=== PATIENT | female | born 1955 | race African-American/Black ===

== ENCOUNTER 2016-10-31 08:46 | Day surgery (SDC) | payer MEDICAID ==
[~2016-10-31] VITALS: Ht 167.6 cm; Wt 88.6 kg
[~2016-10-31 08:46] MED LIST: ALDACTONE25 MG PO; GLUCOPHAGE850 MG PO; HYDROCODONE-APA1 TAB PO; LISINOPRIL10 MG PO; NEURONTIN800 MG PO; OMEPRAZOLE40 MG PO; PAMELOR 25 MG C25 MG PO; ROBAXIN-750750 MG PO; ZOLOFT25 MG
[2016-10-31 10:38] LABS: BASOPHILS 0.3 % (0.0-2.0); EOSINOPHILS 2.3 % (0-7); HEMATOCRIT 36.5 % (36.0-48.0); HEMOGLOBIN 11.6 g/dL (12-16); IMMATURE GRANULOCYTES 0.3 % (0-5); LYMPHOCYTES 40.4 % (15-50); MCH 29.4 pg (26.0-34.0); MCHC 31.8 g/dL (31.0-37.0); MCV 92.6 fL (80.0-100.0); MEAN PLATELET VOLUME 8.6 fL (7.4-10.4); MONOCYTES 8.3 % (2-11); NEUTROPHILS 48.4 % (40-80); PLATELET COUNT 323 10x3/uL (130-400); RBC 3.94 10x6/uL (4.00-5.40); RDW 13.9 % (11.5-14.5); WBC 10.5 10x3/uL (4.8-10.8)
[2016-10-31 10:50] LABS: CALC OSMOLALITY 280 mosm/kg (275-300); CALCIUM 8.9 mg/dL (8.5-10.1); CARBON DIOXIDE 25.3 mmol/L (21.0-32.0); CHLORIDE - SERUM 104 mmol/L (98-107); CREATININE - SERUM 0.7 mg/dL (0.6-1.3); GLUCOSE 146 mg/dL (74-106); SODIUM 140 mmol/L (136-145); UREA NITROGEN 10 mg/dL (7-18); eGFR NON AFRICAN AMERICAN > 90 mL/min (90-120)
[2016-10-31 11:19] VITALS: BP 111/79; Ht 167.6 cm; Wt 88.6 kg
--- NOTE | 2016-10-31 13:31 | NUR ---
6895 DR NORIEGA HAS ROUNDED AND GAVE RESULTS. 2 NORCO 10NG OI GIVEN FOR LEG PAIN/BURNING PAIN.
--- NOTE | 2016-11-01 10:15 | OP ---
PATIENT NAME: CHRIS SORENSON MEDICAL RECORD: [id number] :59 LOCATION:[facility] ADMISSION DATE: SURGEON: SHARATH NORIEGA DO DATE OF OPERATION: 10/31/2016 PROCEDURE: Colonoscopy with endoscopic mucosal resection and snare polypectomy as well as submucosal injection for tattooing. MEDICATIONS: Propofol 650 mg IV per anesthesia. INDICATIONS FOR PROCEDURE: Altered bowel function and hematochezia. FINDINGS: Informed consent was given. The patient was made comfortable with the above medications. After reaching an adequate level of sedation by slow IV push, the patient was placed on her left side. The digital rectal examination was performed and was normal. The endoscope was then advanced under direct visualization through the rectum to the terminal ileum. There was evidence of pandiverticulosis throughout the entire colon. There was mixed, small and large mouth diverticula present throughout and the severity was mild to moderate. There were small internal hemorrhoids, which were not bleeding and showed no bleeding stigmata. There were 4 separate polyps visualized. The first was in the ascending colon just distal to the ileocecal valve. This measured approximately 1 cm in size. It was lifted with saline prior to snare cautery polypectomy in 1 piece. It was completely retrieved. There was some oozing of blood from that site and a small defect secondary to the procedure. Two endoclips were placed to close the defect and prevent any bleeding. This maneuver was successful. Scope was withdrawn and the transverse colon polyp was visualized. It measured approximately 8 mm in size. It was lifted with saline prior to snare cautery polypectomy. It was removed and retrieved in 1 piece. Another polyp was located in the rectum. It measured approximately 5 mm in size. It was removed with hot snare polypectomy and completely retrieved. The fourth and final polyp was a wide-based polyp that measures approximately 1-1/2 to 2 cm in size in the sigmoid colon. This was located in the area full of diverticula, which made the bowel thickened. There were multiple spasms occurring during the procedure which made visualization even difficult of this polyp. For this reason, tattoo was placed in the site and the patient will be brought back in the near future for another attempt at resection of this polyp. Scope was then withdrawn from the patient. The patient tolerated the procedure well and there were no complications. IMPRESSION: 1. Four separate polys, 3 of which were removed by hot snare polypectomy. 2. Small internal hemorrhoids, which were not bleeding. 3. Pandiverticulosis of mild to moderate severity. PLAN AND RECOMMENDATIONS: 1. Discharge home when recovery parameters are met. 2. Continue current medications. 3. Continue current diet and supplement with fiber as tolerated. 4. We will bring the patient back for a flexible sigmoidoscopy with an endocuff for better visualization of the sigmoid polyp and with attempted removal at that time. There was tattoo placed near this polyp to aid with visualization and location on return. TRANSINT:[id number] Voice Confirmation ID: [id number] DOCUMENT ID: [id number] OPERATIVE REPORT [id number] CHRIS SORENSON NATHAN A DO at 1015 CC: [id number] DICTATION DATE: 10/31/16 1310 SUPERVISOR PROPERTIES: 10/31/162014 [facility] 10/31/16 [id number] [place] [address]
== END 2016-10-31 14:53 | disposition home or self-care (01) ==
LOC: D.OPS 08:46
PROVIDERS: Anesthesiology
DX: D12.2 Benign neoplasm of ascending colon (principal); D12.3 Benign neoplasm of transverse colon; K62.1 Rectal polyp

== ENCOUNTER → 2017-01-03 08:43 | Outpatient (CLI) | payer MEDICAID ==
[2016-10-31 11:19] VITALS: BMI 31.5
[2017-01-03 10:50] LABS: ALBUMIN 3.8 g/dL (3.4-5.0); BILIRUBIN - INDIRECT 0.28 mg/dL (0.00-1.00); BILIRUBIN - TOTAL 0.32 mg/dL (0.2-1.3); PROTEIN - SERUM 7.9 g/dL (6.4-8.2)
[2017-01-03 10:53] LABS: BILIRUBIN - DIRECT 0.04 mg/dL (0.00-0.30)
== END | disposition home or self-care (01) ==
LOC: D.US 08:43
PROVIDERS: Internal Medicine Gastroenterology
DX: K76.0 Fatty (change of) liver, not elsewhere classified (principal)

== ENCOUNTER → 2017-01-09 10:00 | Outpatient (CLI) | payer MEDICAID ==
[2016-10-31 11:19] VITALS: BMI 31.5
== END ==
LOC: D.MAMMO 10:00
DX: Z12.31 Encounter for screening mammogram for malignant neoplasm of breast (principal)

== ENCOUNTER 2017-01-30 08:33 | Day surgery (SDC) | payer MEDICAID ==
[~2017-01-30] VITALS: Ht 167.6 cm; Wt 86.4 kg
--- NOTE | ~2017-01-30 | PRO ---
PATIENT:CHRIS SORENSON MEDICAL RECORD: [id number] : 59 LOCATION:D.OPS ADMISSION DATE: 01/30/17 PROCEDURE PERFORMED BY: SHARATH NORIEGA DO PROCEDURE DATE: 01/30/17 PROCEDURE: Flexible sigmoidoscopy with biopsy. INDICATIONS FOR PROCEDURE: Follow-up of previously identified polyp of the sigmoid colon. SCOPE: Olympus video pediatric colonoscope. MEDICATIONS: Propofol 380 milligrams IV per anesthesia. ESTIMATED BLOOD LOSS: Less than 3 mL. COMPLICATIONS: None. FINDINGS: Informed consent was given. The patient was made comfortable with the above medication. After reaching an adequate level of sedation by slow IV push, the patient was placed on her left side. A digital rectal examination was performed and was normal. The endoscope was then advanced under direct visualization through the rectum to the splenic flexure. It was slowly withdrawn, and mucosa was carefully examined. There was severe diverticulosis as noted previously on this examination. In the sigmoid colon at approximately 45 cm where tattoo had previously been placed, the polyp was identified. It was a semi pedunculated wide based polyp that appeared vascular and measured approximately 1.5 cm in size. Multiple attempts were made to remove the polyp using snare cautery, but this was unsuccessful. Reasons for difficulty include the fact that multiple diverticula were in the area and the polyp kept going within a single diverticulum. There were also multiple contractions throughout the bowel and difficulty holding air within the lumen of the bowel for visualization. For this reason, multiple biopsies were taken to submit for pathology. The endoscope was withdrawn from the patient as the polyp could not be removed. The patient tolerated the procedure well, and there were no complications. IMPRESSIONS: 1. Previously identified sigmoid polyp biopsied on this examination but not removed. 2. Severe diverticulosis of the left side of the colon. PLAN/RECOMMENDATIONS: 1. Discharge home when recovery parameters are met. 2. High fiber diet. 3. Continue current medications. 4. Referral to Dr. Demarco for consideration of APC and a complete colonoscopy to reevaluate other areas of previously removed tubulovillous adenoma. 5. Follow-up biopsy specimen results. PROCEDURE NOTE [id number] CHRIS SORENSON SHARATH NORIEGA DO CC: [id number] DICTATION DATE: 01/30/171957 WEB COORDINATOR: TC 01/30/171956 [facility] 01/30/17 [facility] [address] [place] [address]
[~2017-01-30 08:33] MED LIST changes: -ZOLOFT25 MG; +ZOLOFT25 MG PO
[2017-01-30] MEDS ORDERED: K-TAB10 MEQ PO (09:17)
[2017-01-30 09:27] VITALS: Ht 167.6 cm; Wt 86.4 kg
[2017-01-30 10:47] LABS: HEMATOCRIT 38.8 % (36.0-48.0); HEMOGLOBIN 12.5 g/dL (12-16); MCH 29.7 pg (26.0-34.0); MCHC 32.2 g/dL (31.0-37.0); MCV 92.2 fL (80.0-100.0); MEAN PLATELET VOLUME 9.4 fL (7.4-10.4); RBC 4.21 10x6/uL (4.00-5.40); WBC 7.4 10x3/uL (4.8-10.8)
[2017-01-30 11:15] LABS: CALCIUM 9.3 mg/dL (8.5-10.1); CARBON DIOXIDE 23.2 mmol/L (21.0-32.0); POTASSIUM - SERUM 4.2 mmol/L (3.5-5.1)
--- NOTE | 2017-01-30 12:26 | NUR ---
1205- PT BACK, SITTING UP WITH HOB ELEVATED. 1220- FULL LIQUIDS OFFERED. VSS. FSBS CONTINUES TO BE ELEVATED. DR. LE INSTRUCTED PT TO SPEAK WITH PCP ABOUT STARTING ON INSULIN FOR UNCONTROLLED DIABETES. WILL MONITOR.
--- NOTE | 2017-01-30 13:59 | NUR ---
1400- BREVING CONSULTED FOR [facility] COAGULATION. OFFICE FAXED CONSULT AND CALLED FOR VERIFICATION. 1255- FULL LIQUIDS TOLERATED. VSS. IV D/C'D, CATHETER INTACT. 1305- DISCHARGE INSTRUCTIONS COMPLETED, PT VERBALIZED UNDERSTANDING. PAPERWORK SIGNED. [facility] CALLED FOR TRANSPORTATION 1310- PT DISCHARGED VIA WHEELCHAIR TO [facility].
== END 2017-01-30 13:10 | disposition home or self-care (01) ==
LOC: D.OPS 08:33
PROVIDERS: Anesthesiology
DX: D12.5 Benign neoplasm of sigmoid colon (principal); K57.30 Diverticulosis of large intestine without perforation or abscess without bleeding; K56.60 Unspecified intestinal obstruction; Z01.812 Encounter for preprocedural laboratory examination

== ENCOUNTER 2017-04-05 10:48 | Day surgery (SDC) | payer MEDICAID ==
[~2017-04-05] VITALS: Ht 167.6 cm; Wt 88.5 kg
[~2017-04-05 10:48] MED LIST changes: +K-TAB10 MEQ PO; +OMEPRAZOLE20 M1 PO; -OMEPRAZOLE40 MG PO; -ZOLOFT25 MG PO; +ZOLOFT50 MG PO
[2017-04-05] MEDS ORDERED: LEVEMIR100 U/M1 SC (12:17)
[2017-04-05] MEDS ORDERED: GLUCOTROL 5 MG T5 MG PO (12:17)
[2017-04-05] MEDS ORDERED: CLARITIN 10 MG10 MG PO (12:18)
[2017-04-05] MEDS ORDERED: PROAIR HFA8.5 GM INH (12:19)
[2017-04-05] MEDS ORDERED: PRAVACHOL20 MG PO (12:19)
[2017-04-05] MEDS ORDERED: PEPCID20 MG PO (12:19)
[2017-04-05 12:29] VITALS: BP 99/54; Ht 167.6 cm; Wt 88.5 kg
[2017-04-05 13:06] LABS: BASOPHILS 0.3 % (0-2); EOSINOPHILS 1.4 % (0-7); HEMATOCRIT 33.6 % (36.0-48.0); HEMOGLOBIN 10.9 g/dL (12-16); IMMATURE GRANULOCYTES 0.4 % (0-5); MCH 29.8 pg (26.0-34.0); MCHC 32.4 g/dL (31.0-37.0); MCV 91.8 fL (80.0-100.0); MEAN PLATELET VOLUME 8.6 fL (7.4-10.4); MONOCYTES 7.3 % (2-11); NEUTROPHILS 54.6 % (40-80); PLATELET COUNT 327 10x3/uL (130-400); RBC 3.66 10x6/uL (4.00-5.40); WBC 11.1 10x3/uL (4.8-10.8)
[2017-04-05 13:15] LABS: INR 1.02 (0.85-1.17); PROTIME 13.3 SECONDS (11.6-15.0)
[2017-04-05 13:16] LABS: APTT 35.3 SECONDS (22.8-39.4)
[2017-04-05 13:18] LABS: CALC OSMOLALITY 280 mosm/kg (275-300); CALCIUM 8.6 mg/dL (8.5-10.1); CARBON DIOXIDE 25.4 mmol/L (21.0-32.0); CHLORIDE - SERUM 104 mmol/L (98-107); CREATININE - SERUM 0.7 mg/dL (0.6-1.3); GLUCOSE 90 mg/dL (74-106); POTASSIUM - SERUM 4.1 mmol/L (3.5-5.1); SODIUM 141 mmol/L (136-145); UREA NITROGEN 13 mg/dL (7-18); eGFR NON AFRICAN AMERICAN > 90 mL/min (90-120)
--- NOTE | 2017-04-05 16:45 | NUR ---
1624--PT COMPLAINS OF PAIN FROM FIBROMYALGIA, RATES PAIN 05/09. NORCO 10/325MG GIVEN PO PER DR SHERIDAN ORDERS. RICARDA RICHARDS 6625--PT RIDES SCAT VAN, REQUESTS TO HAVE IV OUT AND GET DRESSED TO CATCH HER RIDE BACK HOME. IV DC'D, PT UP TO DRESS AT THIS TIME. RICARDA RICHARDS
--- NOTE | 2017-04-05 16:56 | NUR ---
1655--DISCHARGE INSTRUCTIONS GIVEN, PT VERBALIZES UNDERSTANDING. PT OFF UNIT VIA WC. MCKEON
--- NOTE | 2017-04-07 08:42 | OP ---
PATIENT NAME: CHRIS DOMINIQUE MEDICAL RECORD: [id number] :59 LOCATION:D.OPS ADMISSION DATE: SURGEON: CLARITA BURTON MD DATE OF OPERATION: 04/05/2017 PREOPERATIVE DIAGNOSES: History of complex colon polyps, recurrent colon polyp with a tubulovillous adenoma which has been tattooed. POSTOPERATIVE DIAGNOSIS: History of complex colon polyps, recurrent colon polyp with a tubulovillous adenoma, which has been tattooed, total of 7 polyps including the tattooed polyp. PROCEDURES: 1. Total colonoscopy to cecum. 2. Hot biopsy forceps polypectomy times 6. 3. Polypectomy of the tattooed polyp with ablation of the base of the polyp with the argon plasma supervisor lamp shades. SURGEON: Clarita Burton MD NEW ACCOUNT INTERVIEWER: None. ESTIMATED BLOOD LOSS: Minimal. ANESTHESIA: General. COMPLICATIONS: None. The risks, possible complications and alternatives to procedure were explained to the patient. She elects to proceed. The discussion specifically included, but was not limited to, bleeding requiring emergency reoperation, infection, intestinal injury and intestinal perforation. OPERATIVE COURSE: The patient was conveyed to the operating room electively on 04/05/2017. General anesthesia was induced by anesthesia staff. The patient was positioned in the Quintana position. A digital rectal examination was performed. A colonoscope was inserted through the anus. It was easily advanced to the cecum. Upon withdrawal, I irrigated and aspirated extensively. The prep was adequate. I dragged the folds. A total of 6 sessile polyps were removed utilizing a hot biopsy forceps polypectomy technique. I think that I was able to visualize more polyps just because the prep was better than the prep had been with Dr. Miner. This polyps ranged in size from 6 mm to 1.2 cm. They were removed in their entireties. The tattoo, I found it to be around 25 cm. Across the tattoo was a polyp and it was between 2 folds. It was difficult to get to and grasp and biopsy, but I was able to get some 1 hot and 1 cold endoscopic biopsy of the polyp and then I ablated the rest of the polyp with the argon plasma supervisor lamp shades utilizing the right colon setting in the forced mode. A retroflexed view was obtained in the rectum. The entire pullback was greater than a 20-minute pullback. I then unretroflexed the scope and removed it under direct vision. The patient was then extubated and conveyed to post-anesthesia care unit where she was in stable condition. 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 For this reason, I am going to place her on Flagyl. I will see her OPERATIVE REPORT [id number] CATINACHRIS in the office in 2-3 weeks. I will plan for her next colonoscopy with the argon plasma supervisor lamp shades to take place in 1 year. TRANSINT:[id number] Voice Confirmation ID: [id number] DOCUMENT ID: [id number] CLARITA BURTON MD at 0842 CC: SHARATH MINER DO [id number] DICTATION DATE: 04/05/17 1540 ELEVATOR REPAIRER: 04/06/17 0003 [facility] 04/05/17 [facility] [address] [place] [address]
== END 2017-04-05 16:55 | disposition home or self-care (01) ==
LOC: D.OPS 10:48 → D.PAN 11:15 → D.OPS 12:45 → D.PAN 12:45 → D.OPS 16:55
PROVIDERS: Anesthesiology
DX: K63.5 Polyp of colon (principal); F17.200 Nicotine dependence, unspecified, uncomplicated; E11.9 Type 2 diabetes mellitus without complications; G47.30 Sleep apnea, unspecified; K21.9 Gastro-esophageal reflux disease without esophagitis; Z01.812 Encounter for preprocedural laboratory examination

== ENCOUNTER → 2018-05-08 16:55 | Outpatient (CLI) | payer MEDICAID ==
[2017-04-05 12:29] VITALS: BMI 31.5
[~2018-05-08 16:55] MED LIST changes: +CLARITIN 10 MG10 MG PO; +GLUCOTROL 5 MG T5 MG PO; +LEVEMIR100 U/M1 SC; +PEPCID20 MG PO; +PRAVACHOL20 MG PO; +PROAIR HFA8.5 GM INH
== END | disposition home or self-care (01) ==
LOC: D.MAMMO 14:45
DX: Z12.31 Encounter for screening mammogram for malignant neoplasm of breast (principal)

== ENCOUNTER → 2018-07-03 06:17 | Day surgery (SDC) | payer MEDICAID ==
[~2018-07-03] VITALS: Ht 167.6 cm; Wt 90.9 kg
--- NOTE | ~2018-07-03 | OP ---
PATIENT NAME: CHRIS DOMINIQUE MEDICAL RECORD: [id number] :59 LOCATION:D.OPS ADMISSION DATE: SURGEON: CLARITA BURTON MD DATE OF OPERATION: 07/03/2018 PRINCIPAL DIAGNOSIS: History of recurrent tattooed colon polyp at 25 cm. POSTOPERATIVE DIAGNOSES: 1. History of recurrent tattooed colon polyp at 25 cm with no evidence of recurrence or persistence of polyp. 2. Inadequate prep. 3. Moderate pandiverticulosis. PROCEDURES: Total colonoscopy to cecum. SURGEON: Clarita Burton MD MEDICAL BILLING SERVICE: None. BLOOD LOSS: Zero. ANESTHESIA: IV sedation. COMPLICATIONS: None. The reason for the anesthesia staff being present during the procedure includes sleep apnea and the possible need for airway manipulation. ENDOSCOPIC COURSE: The patient was conveyed to endoscopy suite electively on 07/03/2018. IV sedation was induced by the anesthesia staff. The patient was placed in the Quintana position. A digital rectal examination was performed. A colonoscope was inserted through the anus. It was easily advanced to the cecum. Following withdrawal, I irrigated and aspirated extensively. The tattoos were noted. Specifically, the area between the tattoos was without any polypoid tissue. I checked with normal imaging as well as narrow band imaging. I checked probably about 10 times in the area and could identify no polypoid tissue. The pullback was greater than a 14-minute pullback. A retroflexed view was obtained in the rectum. I then unretroflexed the scope and removed it under direct vision. I will plan to return the patient back over to Dr. Miner for surveillance colonoscopies in the future. As this was an inadequate prep, I would recommend the patient's next surveillance colonoscopy to take place in 1 year. TRANSINT:[id number] Voice Confirmation ID: [id number] DOCUMENT ID: [id number] CLARITA BURTON MD at 1909 CC: [facility] MAC and SHARATH MINER DO [id number] DICTATION DATE: 07/03/18 0936 GROUND CREW CHIEF: 07/03/[address] [facility] [address] [place] [address]
--- NOTE | ~2018-07-03 | HP ---
PATIENT: CHRIS DOMINIQUE MEDICAL RECORD: [id number] ACCOUNT: [id number] LOCATION:[facility] : 59 ADMISSION DATE: 07/03/18 PCP: [facility] HISTORY AND PHYSICAL EXAMINATION CHIEF COMPLAINT: Polyp. HISTORY OF PRESENT ILLNESS: The patient has a history of a tattooed polyp at 25 cm. It was between 2 folds. The pathology was a tubulovillous adenoma with low-grade atypia. The patient is to undergo a colonoscopy with argon plasma residential specialist. PAST MEDICAL AND SURGICAL HISTORY: Hysterectomy, left shoulder surgery, left hand surgery, history of colonoscopy for polyps, sleep apnea on CPAP, asthma, hypertension, non-insulin dependent diabetes mellitus, neuropathy as well as fibromyalgia. HOME MEDICATIONS: Please see the nursing list. ALLERGIES: No known drug allergies. PHYSICAL EXAMINATION: GENERAL: The patient does not appear acutely ill. She does not appear chronically ill. VITAL SIGNS: Reviewed. EARS: External ears appear normal. EYES: Extraocular movements are intact. NECK: Trachea is midline. CHEST: No intercostal retractions. PULMONARY: Nonlabored, no stridor. IMPRESSION: History of tubulovillous adenoma at 25 cm. PLAN: Colonoscopy and polypectomy. TRANSINT:[id number] Voice Confirmation ID: [id number] DOCUMENT ID: [id number] CLARITA BURTON MD at 1909 CC: [id number] DICTATION DATE: 07/03/18 0848 REHABILITATION COUNSELLOR: 07/03/18 0908 [facility] [address] [place] [address]
[2018-07-03 07:00] LABS: HEMATOCRIT 34.9 % (36.0-48.0); MCH 27.8 pg (26.0-34.0); MCHC 31.5 g/dL (31.0-37.0); MCV 88.4 fL (80.0-100.0); MEAN PLATELET VOLUME 8.7 fL (7.4-10.4); RBC 3.95 10x6/uL (4.00-5.40); RDW 16.1 % (11.5-14.5); WBC 9.3 10x3/uL (4.8-10.8)
[2018-07-03 07:42] VITALS: BP 126/69; Ht 167.6 cm; Wt 90.9 kg
== END | disposition home or self-care (01) ==
LOC: D.OPS 06:17
PROVIDERS: Anesthesiology
DX: K57.30 Diverticulosis of large intestine without perforation or abscess without bleeding (principal); Z86.010 Personal history of colon polyps; G47.30 Sleep apnea, unspecified; J45.909 Unspecified asthma, uncomplicated; I10 Essential (primary) hypertension; E11.9 Type 2 diabetes mellitus without complications; G62.9 Polyneuropathy, unspecified; M79.7 Fibromyalgia; Z01.812 Encounter for preprocedural laboratory examination

== ENCOUNTER → 2018-07-10 16:42 | Outpatient (CLI) | payer MEDICAID ==
[2018-07-03 07:42] VITALS: BMI 32.3
== END | disposition home or self-care (01) ==
LOC: D.MAMMO 06-07 09:30
DX: R92.8 Other abnormal and inconclusive findings on diagnostic imaging of breast (principal)

== ENCOUNTER 2018-09-19 05:15 | Day surgery (SDC) | payer MEDICAID ==
[~2018-09-19] VITALS: Ht 167.6 cm; Wt 90.9 kg
[~2018-09-19 05:15] MED LIST changes: +LEVEMIR FL100 UNIT/1 SC; -LEVEMIR100 U/M1 SC
[2018-09-19 05:45] LABS: BASOPHILS 0.3 % (0-2); EOSINOPHILS 2.1 % (0-7); HEMATOCRIT 35.9 % (36.0-48.0); HEMOGLOBIN 11.4 g/dL (12-16); IMMATURE GRANULOCYTES 0.1 % (0-5); LYMPHOCYTES 48.8 % (15-50); MCHC 31.8 g/dL (31.0-37.0); MCV 91.3 fL (80.0-100.0); MEAN PLATELET VOLUME 8.4 fL (7.4-10.4); MONOCYTES 8.2 % (2-11); NEUTROPHILS 40.5 % (40-80); PLATELET COUNT 296 10x3/uL (130-400); RBC 3.93 10x6/uL (4.00-5.40); RDW 15.3 % (11.5-14.5); WBC 11.8 10x3/uL (4.8-10.8)
[2018-09-19 05:57] LABS: ANION GAP 13.4 mmol/L (8-16); CALCIUM 8.9 mg/dL (8.5-10.1); CARBON DIOXIDE 27.5 mmol/L (21.0-32.0); POTASSIUM - SERUM 3.9 mmol/L (3.5-5.1)
[2018-09-19 07:29] VITALS: BP 107/67; Ht 167.6 cm; Wt 90.9 kg
--- NOTE | 2018-09-19 08:09 | NUR ---
0750-TO ROOM, TIVA PER DR. GOODMAN'S. 0757-PROCEDURE STARTED-IMMEDIATE DESATURATE TO 40'S WITH ORAL AIRWAY PLACED PER ANESTHESIA-BAG WITH AMBU BAG UP TO 90'S, AIRWAY SUCTION MULTIPLE TIMES. 0802 TO 0804 REATTEMPT WITH SEDATE PER TIVA, PATIENT QUICKLY DESAT-PROCEDURE DISCONTINUED. MASK PLACED @ 15 LITERS, SUCTION ORAL AIRWAY. 0811-PT. AWAKE-TALKATIVE, O2 VIA NC 10 LITERS-SUCTION ORAL AIRWAY WITH PRODUCTIVE COUGH, LARGE AMOUNT CLEAR SECREATIONS NOTED. HEART RATE 98, PULSE OX 100%, 138/69 RESP. RATE 22.
--- NOTE | 2018-09-19 08:41 | NUR ---
0802-SEE POST PROCEDURE NURSE'S NOTE.
--- NOTE | 2018-09-19 09:41 | OP ---
PATIENT NAME: CHRIS DOMINIQUE MEDICAL RECORD: [id number] :59 LOCATION:D.OPS ADMISSION DATE: SURGEON: SHARATH NORIEGA DO DATE OF OPERATION: 09/19/2018 PROCEDURE: Attempted EGD. INDICATION FOR PROCEDURE: Dysphagia, Chavez's esophagus, GERD. SCOPE: Olympus video gastroscope. MEDICATIONS: Propofol 150 mg IV per anesthesia. ESTIMATED BLOOD LOSS: None. COMPLICATIONS/LIMITATIONS: This procedure was not completed due to patient's intolerance with hypoxia after initiating sedation. DESCRIPTION OF PROCEDURE: The patient was placed on her left side. She had a nasal cannula and sedation was started slowly. Once reaching an adequate level of sedation, the EGD was attempted. The endoscope intubated the esophagus and within a few seconds it was noted that the patient's oxygen saturation level was dropping quickly. The endoscope was withdrawn from the patient. The patient was supported with bag mask ventilation and jaw thrust maneuvers. The oxygen saturation responded appropriately and quickly to these maneuvers successfully. After she was recovered, adequate amount of time, sedation was restarted and the procedure was going to be attempted again, but the patient again desaturated quickly without intubation of the esophagus. At this time, all sedation was stopped. A mask was placed on the patient as well as an oral airway and her oxygen saturation recovered quickly. Procedure was completely terminated at this time. IMPRESSIONS: Incomplete EGD without findings on today's examination. PLAN AND RECOMMENDATIONS: 1. We will discharge home when recovery parameters are met. 2. We will obtain an EKG prior to discharge. 3. We will reschedule for another date in the OR with general anesthesia for safety reasons. I have discussed this with the patient and she is in agreement with plan. TRANSINT:[id number] Voice Confirmation ID: [id number] DOCUMENT ID: [id number] SHARATH NORIEGA DO at 0941 CC: [id number] DICTATION DATE: 09/19/1834 WOODYARD CRANE OPERATOR: 09/19/18 0857 [facility] [id number]
== END 2018-09-19 10:20 | disposition home or self-care (01) ==
LOC: D.OPS 05:15
PROVIDERS: Anesthesiology
DX: T88.59XA Other complications of anesthesia, initial encounter (principal); R09.02 Hypoxemia; R13.10 Dysphagia, unspecified; K22.70 Barrett's esophagus without dysplasia; K21.9 Gastro-esophageal reflux disease without esophagitis

== ENCOUNTER → 2019-01-24 08:30 | Outpatient (CLI) | payer MEDICAID ==
[2018-09-19 07:29] VITALS: BMI 32.3
== END | disposition home or self-care (01) ==
LOC: D.MAMMO 12-10 10:30
PROVIDERS: ATTEND Family Medicine
DX: R92.8 Other abnormal and inconclusive findings on diagnostic imaging of breast (principal)

== ENCOUNTER → 2019-06-06 08:22 | Outpatient (CLI) | payer MEDICAID ==
[2018-09-19 07:29] VITALS: BMI 32.3
[2019-06-06 09:05] LABS: ALBUMIN 3.9 g/dL (3.4-5.0); BILIRUBIN - DIRECT 0.11 mg/dL (0.00-0.30); BILIRUBIN - INDIRECT 0.16 mg/dL (0.00-1.00); BILIRUBIN - TOTAL 0.27 mg/dL (0.2-1.3); PROTEIN - SERUM 7.9 g/dL (6.4-8.2)
== END | disposition home or self-care (01) ==
LOC: D.US 08:22
PROVIDERS: ATTEND Internal Medicine Gastroenterology
DX: K76.0 Fatty (change of) liver, not elsewhere classified (principal)

== ENCOUNTER 2019-08-14 06:34 | Inpatient (IN) | payer MEDICAID ==
[2019-08-14] VITALS (9 sets, daily range): BP systolic 119–153; BP diastolic 64–95; Ht 167.6 cm; Wt 97.5 kg
[~2019-08-14] VITALS: Ht 167.6 cm; Wt 97.5 kg
--- NOTE | ~2019-08-14 | OP ---
PATIENT NAME: CHRIS SORENSON MEDICAL RECORD: [id number] :59 LOCATION:D.OPS ADMISSION DATE: SURGEON: CLARITA BURTON MD DATE OF OPERATION: 08/14/2019 PREOPERATIVE DIAGNOSES: 1. Symptomatic gallstones. 2. Fatty liver disease. POSTOPERATIVE DIAGNOSES: 1. Symptomatic gallstones. 2. Fatty liver disease. 3. Extensive intraabdominal adhesions around and inferior to the umbilicus. PROCEDURES: 1. Laparoscopic cholecystectomy. 2. Intraoperative cholangiography without immediate surgeon interpretation. 3. A 14-gauge core needle liver biopsy. SURGEON: Clarita Burton MD LOAN OFFICER: None. BLOOD LOSS: Minimal. ANESTHESIA: General. COMPLICATIONS: None. The indication for liver biopsy was fatty liver disease, which was noted on ultrasound. The adhesiolysis was a sharp adhesiolysis and took approximately 13 minutes. OPERATIVE COURSE: The patient was conveyed the operating room electively on 08/14/2019. General anesthesia was induced by the anesthesia staff. The abdomen was sterilely prepped and draped. A small skin kathy was accomplished in the left upper quadrant. A Veress needle was inserted through the skin kathy into the peritoneal cavity. CO2 insufflation was begun. Once a sufficient pneumoperitoneum had been achieved, a 5-mm trocar was inserted in the right upper quadrant. Under direct internal vision utilizing the television camera, a 5-mm trocar was inserted in the left mid abdomen. Through these 2 trocars, a sharp adhesiolysis was performed with scissors as well as with the electrocautery. This was done in the midline as well as in the suprapubic area and around the umbilicus. This was due to the patient's prior operation. At no time was there any apparent nerve or muscle or intestinal injury during this operation. A skin incision was accomplished within the umbilicus. A 12-mm trocar was inserted here. Another 5-mm trocar was inserted far laterally in the right upper quadrant. Some adhesions over the liver were taken down with the hook cautery. I advanced a 14-gauge core biopsy device under laparoscopic guidance. Cores over the convexity of the liver were taken. The biopsy sites were made hemostatic with electrocautery. OPERATIVE REPORT [id number] CHRIS SORENSON I grasped the gallbladder. There was scar tissue to the gallbladder as well. I advanced a cholangiogram trocar and punctured the fundus of the gallbladder. I aspirated bile. I then injected dye. Real-time cholangiographic images were obtained and are sent to the radiologist for interpretation. I aspirated bile and removed the cholangiogram trocar. The gallbladder was grasped and retracted cephalad. Adhesions to the gallbladder were taken down bluntly. Blunt dissection was begun on the triangle of Calot. One cystic artery and one cystic duct were identified. These were clipped multiply and divided between clips. The gallbladder was then excised from its bed in the liver. It was placed within a bag retrieval device and was withdrawn through the umbilical fascia defect. The 12-mm trocar was replaced and the abdomen reinsufflated. I irrigated and aspirated the right upper quadrant. There was no bleeding even at low pressure of 8. The Omar-Lee suture closure device and 0 Vicryl sutures were used to close the umbilical fascia. The abdomen was desufflated. The 5-mm trocar sites were closed with interrupted intracuticular 3-0 Vicryls. The skin at the umbilicus was closed with interrupted 4-0 Vicryl Rapide sutures. Benzoin and Steri-Strips were applied. The patient was then extubated and conveyed to post-anesthesia care unit where she was in stable condition. She will be dismissed home on [place] as well as [place]. I will see her in the office in 2-3 weeks. When I went to the outpatient department, no family members were present to speak to. TRANSINT:[id number] Voice Confirmation ID: [id number] DOCUMENT ID: [id number] CLARITA BURTON MD CC: [id number] DICTATION DATE: 08/14/19 1241 TOOLS ADMINISTRATOR: 08/14/19 1405 [facility] [address] [id number]
[2019-08-14 07:15] LABS: HEMATOCRIT 38.4 % (36.0-48.0); HEMOGLOBIN 12.2 g/dL (12-16); MCHC 31.8 g/dL (31.0-37.0); MCV 94.6 fL (80.0-100.0); MEAN PLATELET VOLUME 8.6 fL (7.4-10.4); RBC 4.06 10x6/uL (4.00-5.40); RDW 13.8 % (11.5-14.5); WBC 10.6 10x3/uL (4.8-10.8)
[2019-08-14 07:19] LABS: ANION GAP 12.1 mmol/L (8-16); CALCIUM 9.3 mg/dL (8.5-10.1); CREATININE - SERUM 0.9 mg/dL (0.6-1.3); POTASSIUM - SERUM 4.1 mmol/L (3.5-5.1)
--- NOTE | 2019-08-14 14:16 | NUR ---
CONSULTED ANESTHESIA REGARDING PERSISTENT ELEVATED BLOOD PRESSURE. SEE VITAL SIGN RECORD. VERBAL ORDERS RECEIVED FROM DR LE TO ADMINISTER HYDRALAZINE 10MG X1 STAT IN PACU. ORDERS RECEIVED AND IMPLEMENTED. WILL CONTINUE TO MONITOR.
--- NOTE | 2019-08-14 16:00 | NUR ---
RECEIVED FROM OUTPATIENT SURGERY. POST OP LAP CHOLEY LIVER BX. 4 BANDAID DRESSINGS ON ABD DRY AND INTACT. IV LEFT WRIST WITHOUT SWELLING OR REDNESS INFUSING WITH NS. AWAKES TO STIMULATION , BUT RETURNS TO SLEEP IMMEDIATELY. LETHERGIC. RESP DEEP And regular. encourage to cough and deep breath. montior sr. resp therapy placed patient on 3 liters nc.
--- NOTE | 2019-08-14 16:12 | NUR ---
[address] LE ON PT CONDITION. AMP NARCAN GIVEN WITH MINIMAL RESULTS. AWAITING ABG. PER DR. BURTON, WILL ADMIT TO ICU. 1555 TRANSFERRED TO ICU. PT ABLE TO SCOOT SELF. VSS. NOTIFIED VIA PHONE.AND SISTER NOTIFIED VIA PHONE
--- NOTE | 2019-08-14 18:00 | NUR ---
still lethargic. wakes up but too sleepy to answer questions. dr. garcia here.
--- NOTE | 2019-08-14 19:30 | NUR ---
REPORT RECIEVED, SHIFT ASSESSMENT COMPLETE, PT IS LETHARGIC, AROUSES TO VOICE, INCISION X4 ON ABDOMEN, DRSG CDI, ALL PPP, VSS, CALL LIGHT IN REACH
--- NOTE | 2019-08-14 21:00 | NUR ---
FAMILY AT BEDSIDE, UPDATE GIVEN
--- NOTE | 2019-08-14 23:09 | NUR ---
REASSESSMENT COMPLETE, NO CHANGES NOTED, PT RESTING AT THIS TIMEL,L VSS, CALL LIGHT IN REACH
[2019-08-15] VITALS: BP 135/79
[2019-08-15 01:00] VITALS: BP 132/69
--- NOTE | 2019-08-15 01:00 | NUR ---
UPTO BSC, 200 UOP AT THIS TIME
--- NOTE | 2019-08-15 03:06 | NUR ---
REASSESSMENT COMPLETE, NO CHANGES NOTED, PT RESTING AT THIS TIME, VSS, CALL LIGHT IN REACH
--- NOTE | 2019-08-15 05:30 | NUR ---
IV DC'D AT THIS TIME, D\C INSTRUCTIONS GIVEN TO PT, WAITING ON RIDE
--- NOTE | 2019-08-15 07:01 | NUR ---
PT DC'D AT THIS TIME
== END 2019-08-15 07:02 | disposition home or self-care (01) | DRG 358 ==
LOC: D.OPS 06:34 → D.PAN 09:00 → D.OPS 09:00 → D.PAN 09:15 → D.OPS 09:15 → D.ICU 16:05 → D.OPS 19:27 → D.ICU 08-15 07:02
PROVIDERS: Anesthesiology; ADMIT Surgery; ATTEND Surgery
PROC: BF031ZZ Plain Radiography of Gallbladder and Bile Ducts using Low Osmolar Contrast (ICD-10-PCS; 2019-08-14)
PROC: 0FT44ZZ Resection of Gallbladder, Percutaneous Endoscopic Approach (ICD-10-PCS; principal; 2019-08-14 09:00)
PROC: 0FB04ZX Excision of Liver, Percutaneous Endoscopic Approach, Diagnostic (ICD-10-PCS; 2019-08-14 09:00)
DX: K91.89 Other postprocedural complications and disorders of digestive system (principal); R06.89 Other abnormalities of breathing; J44.9 Chronic obstructive pulmonary disease, unspecified; G47.30 Sleep apnea, unspecified; K80.80 Other cholelithiasis without obstruction; R10.9 Unspecified abdominal pain; F17.200 Nicotine dependence, unspecified, uncomplicated; K76.0 Fatty (change of) liver, not elsewhere classified